=== PATIENT | male | born 1960 | race Caucasian/White ===

== ENCOUNTER → 2017-04-12 | Outpatient (CLI) | payer OTHER ==
[~2017-04-12] MED LIST: ALLOPURINOL 10100 M1 PO; GLUCOPHAGE XR750 MG PO; INDOCIN25 MG/5 ML PO; MICARDIS40 MG PO; POTASSIUM CIT2500 GM PO
--- NOTE | ~2017-04-12 | EKG ---
[address] [place] [address] ELECTROCARDIOGRAM REPORT Name: MARIAH SINGH Room #: REG BLAKE Caro#: [id number] Admission: 04/12/17 Attend Phys: Naun Bass DO Discharge: Date of : 56 Report #: [id number] THIS REPORT FOR: //name// [facility] Test Date: 2017-04-12 Test Time: 12:05:24 Pat Name: MARIAH SINGH Department: Room: Gender: M Illustrator Set: ROSALIO : 1960 Requested By: Naun Bass Order Number: [id number] MD: Alex Vásquez Measurements Intervals [place] Rate: 97 P: 30 MN: 164 QRS: 112 QRSD: 88 T: -12 QT: 329 QTc: 418 Interpretive Statements Sinus rhythm Left posterior fascicular block Consider anterior infarct Borderline T abnormalities, inferior leads Minimal ST elevation, lateral leads No previous ECG available for comparison Electronically Signed On 04-12-2017 16:11:17 CDT by Alex Vásquez [email or web address] <ELECTRONICALLY SIGNED> By: Alex Vásquez MD 04/12/17 1611 120 04 Alex Vásquez MD /ANDRES
== END ==
LOC: LITH 11:16
DX: N20.0 Calculus of kidney (principal); I10 Essential (primary) hypertension